=== PATIENT | female | born 1960 | race Caucasian/White ===

== ENCOUNTER 2017-10-18 06:05 | Day surgery (SDC) | payer BC ==
[2017-10-15 12:13] VITALS: BMI 35.4
--- NOTE | 2017-10-17 07:11 | HP ---
[facility] - Chief Complaint Chief Complaint: postmenopausal bleeding History of Present Illness: This patient's LMP was 2 years ago and she started to have uterine bleeding recently. The bleeding did occur after she started HRT , however a D/C is necessary to R/O endometrial pathology. 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: Alzheimer's, CVA, Dementia, Migraine, Multiple Sclerosis, Peripheral Neuropathy, Parkinson's, Seizure, Syncope, TIA, Vertigo, Other Cardiovascular: Yes: Hyperlipdemia Pulmonary: Yes: Asthma Gastrointestinal: No: Ascites, Cancer, Constipation, Crohn's Disease, Diverticulitis, Diverticulosis, Esophageal Varices, Gastritis, GERD, GI Bleed, Hemorrhoids, Hiatal Hernia, Inflamatory Bowel Disease, Irritable Bowel Disease, Pancreatitis, Peptic Ulcer Disease, Ulcerative Colitis, Other Hepatobiliary: No: Cirrhosis, Cholelithiasis, Cholecystitis, Choledocholithiasis , Hepatitis A, Hepatitis B, Hepatitis C, Other Renal/: No: Renal Failure, Renal Inusuff, BPH, Cancer, Hematuria, Hemodialysis , Neurogenic Bladder, Renal Calculi, UTI, Other Reproductive: No: Ectopic , Endometriosis, Fibroids, PID, Polycystic Ovary Syndrome, Postmenopausal, Other ...: No ...: 4 (4 miscarrigages) Heme/Onc: No: Anemia, B12 Deficiency, Bleeding Disorder, Cancer, Current Chemotherapy, Current Radiation Therapy, Hemochromatosis, Hypercoaguable State, Myeloproliferative Synd, Sickle Cell Disease, Sickle Cell Trait, Thrombocytopenia, Other Infectious Disease: No: AIDS, C-Diff, Herpes Zoster, HIV, MRSA, STD's, Tuberculosis, VREF, Other Musculoskeletal: No: Bursitis, Chronic low back pain, Hemiparesis, Hemiplegia, Osteoarthritis, Paraplegia, Other Rheumatology: No: Fibromyalgia, Gout, Lupus, Rheumatoid Arthritis, Sarcoidosis, Vasculitis, Other Endocrine: No: Yann's Disease, Eris's Disease, Diabetes Insipidus, Diabetes Mellitus, Hyperparathyroidism, Hyperthyroidism, Hypothyroidism, Osteopenia, SIADH, Other Dermatology: No: Basal Cell, Cellulitis, Eczema, Melanoma, Psoriasis, Squamous Cell, Other - Current Medications Current Medications: Home Medications Medication Instructions Recorded Fluticasone Prop 0.05% Nasal 2 spray NS BID #1 spraybtl 04/13/13 [Flonase] Albuterol Sulfate Inhaler - 1 - 2 inh IH PRN PRN 10/15/17 [Ventolin HFA Inhaler -] Atorvastatin Ca [Lipitor] 20 mg PO DAILY 10/15/17 Citalopram Hydrobromide [Celexa -] 40 mg PO DAILY 10/15/17 Satellite Physical Exam - Physical Examination General Appearance: Well Nourished, Well Developed, Alert & Oriented x3 ENT: Clear, No Discharge, No masses Lung: Clear to auscultation Heart: Regular rate & rhythm, Normal S1, Normal S2 Breasts: Soft, Non-Tender, No masses bilaterally Abdomen: Soft, No tenderness, No CVA Extremities: No edema, No tenderness/swelling Pelvic Exam: Within normal limits External Genitalia, Within normal limits Vagina, Within normal limits Cervix, Within normal limits Uterus, Within normal limits [place] Neurological: Intact, Alert, Oriented Satellite Impression/Plan - Impression/Plan Impression: postmenopausal bleeding Operative Procedure: hysteroscopy with D/C and polypectomy Date to be Performed: 10/18/17
[2017-10-18] MEDS ORDERED: MIDAZOLAM HCL 2 MG/2 ML SINGLE DOSE VIAL ONE (07:34)
[2017-10-18] MEDS ORDERED: SUCCINYLCHOLINE CHLORIDE 200 MG/10 ML VIAL ONE (07:38)
[2017-10-18] MEDS ORDERED: PROPOFOL 20 ML ONE (07:38)
[2017-10-18] MEDS ORDERED: ONDANSETRON 4 MG/2 ML VIAL ONE (07:51)
[2017-10-18] MEDS ORDERED: LIDOCAINE HCL 2% 100 MG/5 ML DISP.SYRIN ONE (07:51)
[2017-10-18] MEDS ORDERED: DEXAMETHASONE SOD PHOSPHATE 4 MG/1 ML VIAL ONE (07:51)
[2017-10-18] MEDS ORDERED: oxyCODONE HCL 5 MG TABLET PO PRN (08:13)
[2017-10-18] MEDS ORDERED: PROMETHAZINE HCL 25 MG/1 ML VIAL IVPUSH PRN (08:13)
[2017-10-18] MEDS ORDERED: ONDANSETRON 4 MG/2 ML VIAL IVPUSH PRN (08:13)
[2017-10-18] MEDS ORDERED: LACTATED RINGERS SOLUTION 1,000 ML IV SCH (08:15)
[2017-10-18 08:49] VITALS: TEMP 97.8
--- NOTE | 2017-10-18 09:38 | OP ---
DATE OF OPERATION: 10/18/2017 PREOPERATIVE DIAGNOSIS: Postmenopausal bleeding. POSTOPERATIVE DIAGNOSIS: Postmenopausal bleeding. OPERATIVE PROCEDURE: Hysteroscopy, dilatation and curettage. SURGEON: Kevon Aguayo MD ANESTHESIA: Fractional given by Diane Ho MD. ESTIMATED BLOOD LOSS: 2 mL. DESCRIPTION OF PROCEDURE: The patient was brought to the operating room, placed in the supine position, given anesthesia by Dr. Ho, placed in lithotomy position, prepped and draped in the usual manner for dilatation and curettage. A speculum was placed into the vagina. The anterior lip of the cervix was grasped with a tenaculum. The uterus was sounded to 7 cm. The cervix was dilated with Harrison dilators. A dilatation and curettage was carried out with a small curette after visualization of the endometrial cavity revealed no polyps. The surface of the endometrium appeared normal. A dilatation and curettage was carried out using a small curette. Hemostasis was good. The amount of tissue obtained was scant. The tissue was sent to Pathology for analysis. The hemostasis was good. The patient was then transferred from the operating room to the recovery room in good condition with good hemostasis. KEVON AGUAYO M.D. [id number]
[2017-10-18 11:11] VITALS: BP 100/60; PULSE 66
--- NOTE | 2017-10-21 16:38 | PATH ---
Surgical Pathology Report Patient Name: KINSEY PAYTON [facility]. Rec. #: [id number] /Age/Gender: 1960 (Age: 57) / F Account: [id number] Location: [facility] SURGICAL Taken: 10/18/2017 Received: 10/18/2017 Reported: 10/21/2017 Physicians: Davy Aguayo M.D. Specimen(s) Received ENDOMETRIAL CURETTINGS Clinical History Postmenopausal bleeding Final Diagnosis ENDOMETRIAL CURETTINGS, DILATATION AND CURETTAGE: ATROPHIC ENDOMETRIUM AND BENIGN CERVICAL TISSUE. Electronically Signed Neela Krishna M.D. Gross Description Received in formalin labeled "endometrial curetting," is a 1.4 x 1.3 x 0.2 cm aggregate of blood-tinged mucus containing billingsley-brown soft tissue fragments. The formalin is filtered and the specimen is entirely submitted in one cassette. /10/18/201710/18/2017
== END 2017-10-18 10:10 | disposition home or self-care (01) ==
LOC: JASU-SURG 06:05
PROVIDERS: ATTEND Obstetrics & Gynecology
PROC: 0UDB8ZX Extraction of Endometrium, Via Natural or Artificial Opening Endoscopic, Diagnostic (ICD-10-PCS; principal; 2017-10-18 07:30)
DX: N95.0 Postmenopausal bleeding (principal)
CPT/HCPCS: 88305-TC